=== PATIENT | male | born 1990 | race Caucasian/White ===

== ENCOUNTER 2019-06-09 20:11 | Emergency (ER) | payer SELFPAY ==
[~2019-06-09] VITALS: Ht 177.8 cm; Wt 89.1 kg
[2019-06-09 20:17] VITALS: Ht 177.8 cm; Wt 89.1 kg
[2019-06-09] MEDS ORDERED: TESSALON PERLE100 MG PO (20:21)
[2019-06-09] MEDS ORDERED: AZITHROMYCIN500 MG PO (20:37)
[2019-06-09] MEDS ORDERED: AMOXICILLIN500 M1 PO (20:51)
[2019-06-09 21:26] VITALS: BP 140/85
== END 2019-06-09 21:26 | disposition home or self-care (01) ==
LOC: D.ER 20:11
DX: R05 Cough (principal); J20.9 Acute bronchitis, unspecified

== ENCOUNTER 2019-07-20 23:38 | Emergency (ER) | payer SELFPAY ==
[~2019-07-20] VITALS: Ht 177.8 cm; Wt 87.7 kg
[~2019-07-20 23:38] MED LIST: AMOXICILLIN500 M1 PO; AZITHROMYCIN500 MG PO; TESSALON PERLE100 MG PO
[2019-07-20 23:44] VITALS: Ht 177.8 cm; Wt 87.7 kg
[2019-07-21] MEDS ORDERED: TORADOL10 MG PO (00:28)
[2019-07-21 00:43] VITALS: BP 142/71
== END 2019-07-21 00:40 | disposition home or self-care (01) ==
LOC: D.ER 23:38
DX: S62.306A Unspecified fracture of fifth metacarpal bone, right hand, initial encounter for closed fracture (principal); W22.8XXA Striking against or struck by other objects, initial encounter; Y93.9 Activity, unspecified; Y92.9 Unspecified place or not applicable